=== PATIENT | male | born 1990 | race Caucasian/White ===

== ENCOUNTER 2025-04-26 06:49 | Emergency (ER) | payer BC ==
[2025-04-26] MEDS ORDERED: ONDANSETRON 4 MG/2 ML VIAL ONE ×2 (07:26→08:56)
[2025-04-26] MEDS ORDERED: KETOROLAC 30 MG/ML INJ ONE (07:27)
[2025-04-26] MEDS ORDERED: MORPHINE 4 MG/ML SYR ONE (07:27)
[2025-04-26] MEDS ORDERED: NA CHLORIDE 0.9% 1,000 ML ONE (07:27)
--- NOTE | 2025-04-26 07:51 | RAD REPORT ---
EXAMINATION: CT ABDOMEN AND PELVIS WITHOUT CONTRAST CLINICAL INDICATION: ABD PAIN TECHNIQUE: CT abdomen and pelvis was performed, without IV contrast, as per department protocol. Axia l, sagittal and coronal reconstructions were obtained. One or more of the following dose reduction techniques were used: Automated exposure control, adjustment of the mA and kV according to the patien t size, and iterative reconstruction. Unless otherwise specified, incidental findings do not require dedicated imaging follow-up. COMPARISON: No prior exam. FINDINGS: The lack of intravenous contrast limits the sensitivity of this exam for evaluation of solid visceral organs, vascular structures, and retroperitoneum. LOWER CHEST: The visualized lung bases are clear. LIVER:Normal in size and contour. No focal lesion. Cholecystectomy clips. SPLEEN: Normal size. No focal lesion. PANCREAS: No mass, ductal dilation, or carolee-pancreatic fluid. ADRENALS: Normal; no mass. KIDNEYS AND URETERS: 5 mm stone proximal right ureter resulting in mild right hydronephrosis. No left -sided stone or hydronephrosis. URINARY BLADDER: Normal contour. GASTROINTESTINAL TRACT: No evidence of bowel obstruction, significant free fluid, free air or abscess . Small fat-containing umbilical hernia. APPENDIX: Normal appendix. LYMPH NODES: No lymphadenopathy. MUSCULOSKELETAL: Mild multilevel spinal degenerative changes. IMPRESSION: 5 mm stone proximal right ureter resulting in mild right hydronephrosis.
[2025-04-26 07:52] LABS: Absolute Lymphocytes (CBC) 3.4 K/uL (0.7-4.9); Hematocrit 42.6 % (39.6-49.0); Hemoglobin 14.8 g/dL (13.6-17.9); MCH 30.0 pg (27.0-35.0); MCHC 34.7 g/dL (32.0-36.0); MCV 86.4 fL (80-100); MPV 6.5 fL (7.6-11.3); Nucleated RBC Absolute Count 0.0 (0-0); Nucleated Red Blood Cells % 0.0 % (0-0); RBC Red Blood Cell Count 4.93 M/uL (4.33-5.43); White Blood Count 9.40 thou/uL (4.3-10.9)
[2025-04-26 08:00] LABS: ALT/SGPT 64.0 U/L (16-61); AST/SGOT 25.0 U/L (15-37); Albumin 3.6 g/dL (3.4-5.0); Albumin/Globulin Ratio 0.9 (1.1-1.8); Alkaline Phosphatase 74.0 U/L (45-117); Anion Gap 10.9 mEq/L (5.0-15.0); BUN Blood Urea Nitrogen 15.0 mg/dL (7-18); Globulin 4.0 g/dL (2.3-3.5); Glucose Level 135.0 mg/dL (74-106); Lipase 20.0 U/L (13-75); Potassium 3.9 mEq/L (3.5-5.1)
--- NOTE | 2025-04-26 08:17 | EDPHYS ---
Physician Documentation [facility] – [place], [place] Name: Jovany Foreman Age: 34 yrs Sex: Male : 1990 Arrival Date: 04/26/2025 Time: 06:49 Bed 18 Private MD: ED Physician Carlos Grove HPI: 04/26 08:12 This 34 yrs old Male presents to ER via Wheelchair with complaints of sheryl Possible Kidney Stone. 08:12 The patient presents with pain that is acute, with no known mechanism of injury. The sheryl symptoms are located in the low back, low back area and right mid back. Onset: The symptoms/episode began/occurred just prior to arrival. The pain radiates to the right mid back and right low back. Associated signs and symptoms: Pertinent positives: nausea. The problem was sustained from unknown cause. Modifying factors: The patient symptoms are alleviated by nothing, the patient symptoms are aggravated by nothing. Severity of symptoms: At their worst the symptoms were moderate, in the emergency department the symptoms are unchanged. The patient has experienced similar episodes in the past, multiple times. Historical: - Allergies: 07:06 No Known Allergies; ha1 - PMHx: 07:06 Kidney stone; ha1 - PSHx: 07:06 Cholecystectomy; ha1 - Immunization history:: Adult Immunizations not up to date. - Infectious Disease History:: Denies. - Social history:: Smoking status: Patient/guardian denies using tobacco, the patient reports quitting approximately 3 years ago. ROS: 08:14 Constitutional: Negative for fever, chills, and weight loss, Eyes: Negative for injury, sheryl pain, redness, and discharge, ENT: Negative for injury, pain, and discharge, Neck: Negative for injury, pain, and swelling, Cardiovascular: Negative for chest pain, palpitations, and edema, Respiratory: Negative for shortness of breath, cough, wheezing, and pleuritic chest pain, Abdomen/GI: Negative for abdominal pain, nausea, vomiting, diarrhea, and constipation, Back: Negative for injury and pain, MS/Extremity: Negative for injury and deformity, Skin: Negative for injury, rash, and discoloration, Neuro: Negative for headache, weakness, numbness, tingling, and seizure, Psych: Negative for depression, anxiety, suicide ideation, homicidal ideation, and hallucinations, Allergy/Immunology: Negative for hives, rash, and allergies, Endocrine: Negative for neck swelling, polydipsia, polyuria, polyphagia, and marked weight changes, Hematologic/Lymphatic: Negative for swollen nodes, abnormal bleeding, and unusual bruising, 08:14 : Positive for difficulty urinating, Exam: 08:14 Constitutional: This is a well developed, well nourished patient who is awake, alert, sheryl and in no acute distress. Head/Face: Normocephalic, atraumatic. Eyes: Pupils equal round and reactive to light, extra-ocular motions intact. Lids and lashes normal. Conjunctiva and sclera are non-icteric and not injected. Cornea within normal limits. Periorbital areas with no swelling, redness, or edema. ENT: Nares patent. No nasal discharge, no septal abnormalities noted. Tympanic membranes are normal and external auditory canals are clear. Oropharynx with no redness, swelling, or masses, exudates, or evidence of obstruction, uvula midline. Mucous membranes moist. Neck: Trachea midline, no thyromegaly or masses palpated, and no cervical lymphadenopathy. Supple, full range of motion without nuchal rigidity, or vertebral point tenderness. No Meningismus. Chest/axilla: Normal chest wall appearance and motion. Nontender with no deformity. No lesions are appreciated. Cardiovascular: Regular rate and rhythm with a normal S1 and S2. No gallops, murmurs, or rubs. Normal PMI, no JVD. No pulse deficits. Respiratory: Lungs have equal breath sounds bilaterally, clear to auscultation and percussion. No rales, rhonchi or wheezes noted. No increased work of breathing, no retractions or nasal flaring. Abdomen/GI: Soft, non-tender, with normal bowel sounds. No distension or tympany. No guarding or rebound. No evidence of tenderness throughout. Back: No spinal tenderness. No costovertebral tenderness. Full range of motion. Male : Normal genitalia with no discharge or lesions. Skin: Warm, dry with normal turgor. Normal color with no rashes, no lesions, and no evidence of cellulitis. MS/ Extremity: Pulses equal, no cyanosis. Neurovascular intact. Full, normal range of motion., bilateral aka Neuro: Awake and alert, GCS 15, oriented to person, place, time, and situation. Cranial nerves II-XII grossly intact. Motor strength 5/5 in all extremities. Sensory grossly intact. Cerebellar exam normal. Normal gait. Psych: Awake, alert, with orientation to person, place and time. Behavior, mood, and affect are within normal limits. Vital Signs: 06:53 BP 158 / 90; Pulse 98; Resp 19 S; Temp 98.9(O); Pulse Ox 98% on R/A; Weight 145.15 kg; ha1 Height 6 ft. 5 in. ; Pain 9/10; 06:53 Body Mass Index 37.95 (145.15 kg, 195.58 cm) [facility] 06:53 Pain Scale: Adult ha MDM: 07:06 Medical Screening Exam initiated [facility] 04/26 07:00 Order name: CBC with Diff; Complete Time: 08:11 [facility] 04/26 07:00 Order name: CMP; Complete Time: 08:11 [facility] 04/26 07:00 Order name: Lipase; Complete Time: 08:11 [facility] 04/26 07:07 Order name: CT Stone Protocol; Complete Time: 08:11 [facility] 04/26 07:00 Order name: IV Saline Lock; Complete Time: 07:37 [facility] 04/26 07:00 Order name: Labs collected and sent; Complete Time: 07:37 ha Administered Medications: 07:36 Drug: NS 0.9% IV 1000 ml IV at 1000 ml once; to be given as a bolus over 60 minutes bp Route: IV; Rate: 1000 ml; Site: right antecubital; 07:37 Drug: Ondansetron IVP 2 mg IVP once; over 2 minutes Route: IVP; Site: right antecubital;bp 07:37 Drug: morphine IVP or IV 4 mg IVP once over 4 mins Route: IVP; Infused Over: 4 mins; bp Site: right antecubital; 07:37 Drug: Ketorolac IVP 30 mg IVP once Route: IVP; Site: right antecubital; bp 09:00 Drug: Ondansetron IVP 4 mg IVP once; over 2 minutes Route: IVP; Site: right antecubital;bp 09:00 Drug: Flomax PO 0.4 mg PO once Route: PO; bp 09:00 Drug: Rocephin IV 1 grams IV at per protocol once; Given slow IV push per pharmacy bp instructions Route: IV; Rate: per protocol; Site: right antecubital; Disposition Summary: 04/26/25 08:17 Discharge Ordered Notes: Location: Home sheryl Problem: new sheryl Symptoms: have improved sheryl Condition: Stable sheryl Diagnosis - Hydronephrosis with renal and ureteral calculous obstruction - 5 mm right proximal sheryl Followup: sheryl - With: Private Physician - When: 2 - 3 days - Reason: Recheck today's complaints, Continuance of care, Re-evaluation by your physician Followup: sheryl - With: Alfonso Post MD - When: 2 - 3 days - Reason: Recheck today's complaints, Re-evaluation by your physician Discharge Instructions: - Discharge Summary Sheet sheryl - Kidney Stones sheryl - Kidney Stones, [id number] sheryl - Hydronephrosis sheryl - Dietary Guidelines to Help Prevent Kidney Stones sheryl Forms: - Medication Reconciliation Form sheryl - Antibiotic Education sheryl - Prescription Opioid Use sheryl - Patient Portal Instructions sheryl - Leadership Thank You Letter sheryl - Work release form bp Prescriptions: - Flomax 0.4 mg Oral capsule - take 1 capsule ORAL route daily; 30 capsule; Refills: 0, Product Selection [facility] Permitted - ketorolac 10 mg Oral tablet - take 1 tablet ORAL route every 6 hours prn; 12 tablet; Refills: 0, Product sheryl Selection Permitted - ondansetron 4 mg Oral Tablet,disintegrating - take 1 tablet ORAL route every 6 hours as needed for nausea and vomiting; 20 sheryl tablet; Refills: 0, Product Selection Permitted - Cipro 500 mg Oral Tablet - take 1 tablet ORAL route every 12 hours for 7 days; 14 tablet; Refills: 0, [facility] Product Selection Permitted - Tylenol-Codeine #3 300mg-30mg Oral tablet - take 2 tablets ORAL route every 6 hours As needed; 20 tablet; Refills: 0, [facility] Product Selection Permitted Signatures: Dispatcher [employer] Carlos Gaines MD MD cha Peltier, Brian RN RN Janna Gupta RN RN ha1
--- NOTE | 2025-04-26 08:17 | ER ---
Nurse's Notes [facility] Name: Jovany Foreman Age: 34 yrs Sex: Male : 1990 Arrival Date: 04/26/2025 Time: 06:49 Bed 18 Private MD: Diagnosis: Hydronephrosis with renal and ureteral calculous obstruction-5 mm right proximal Presentation: 04/26 06:53 Chief complaint: Patient states: RIGHT LOWER QUADRANT PAIN THAT RADIATES TO THE BACK. ha1 06:53 Coronavirus screen: Client denies travel out of the [place] in the last 14 days. Ebola ha1 Screen: No symptoms or risks identified at this time. Initial Sepsis Screen: Does the patient meet any 2 criteria? No. Patient's initial sepsis screen is negative. Does the patient have a suspected source of infection? No. Patient's initial sepsis screen is negative. Risk Assessment: Do you want to hurt yourself or someone else? Patient reports no desire to harm self or others. Onset of symptoms was April 26, 2025. 06:53 Method Of Arrival: Wheelchair ha1 06:53 Acuity: JACK 3 ha1 Triage Assessment: 07:06 General: Appears uncomfortable, Behavior is calm, cooperative. Pain: Complains of pain ha1 in right lower quadrant Pain radiates to back Pain currently is 9 out of 10 on a pain scale. Quality of pain is described as throbbing. Neuro: Level of Consciousness is awake, alert, obeys commands, Oriented to person, place, time, situation. Cardiovascular: Patient's skin is warm and dry. Respiratory: Airway is patent Respiratory effort is even, unlabored, Respiratory pattern is regular, symmetrical. GI: Abdomen is round obese, Reports lower abdominal pain. Derm: Skin is pink, warm \T\ dry. Musculoskeletal: Circulation, motion, and sensation intact. Historical: - Allergies: 07:06 No Known Allergies; ha1 - PMHx: 07:06 Kidney stone; ha1 - PSHx: 07:06 Cholecystectomy; ha1 - Immunization history:: Adult Immunizations not up to date. - Infectious Disease History:: Denies. - Social history:: Smoking status: Patient/guardian denies using tobacco, the patient reports quitting approximately 3 years ago. Vital Signs: 06:53 BP 158 / 90; Pulse 98; Resp 19 S; Temp 98.9(O); Pulse Ox 98% on R/A; Weight 145.15 kg; ha1 Height 6 ft. 5 in. ; Pain 9/10; 06:53 Body Mass Index 37.95 (145.15 kg, 195.58 cm) ha1 06:53 Pain Scale: Adult [facility] ED Course: 06:53 Patient arrived in ED. gm2 06:59 Lena Zarco, RN is Primary Nurse. kd3 06:59 Inserted saline lock: 20 gauge in right antecubital area, using aseptic technique. kd3 Blood collected. Flushed with 10 mL NS. 07:06 Triage completed. ha1 07:06 Carlos Grove MD is Attending Physician. sheryl 07:21 CT Stone Protocol In Process Unspecified. EDMS 08:16 Alfonso Post MD is Referral Physician. sheryl Administered Medications: 07:36 Drug: NS 0.9% IV 1000 ml IV at 1000 ml once; to be given as a bolus over 60 minutes bp Route: IV; Rate: 1000 ml; Site: right antecubital; 07:37 Drug: Ondansetron IVP 2 mg IVP once; over 2 minutes Route: IVP; Site: right antecubital;bp 07:37 Drug: morphine IVP or IV 4 mg IVP once over 4 mins Route: IVP; Infused Over: 4 mins; bp Site: right antecubital; 07:37 Drug: Ketorolac IVP 30 mg IVP once Route: IVP; Site: right antecubital; bp 09:00 Drug: Ondansetron IVP 4 mg IVP once; over 2 minutes Route: IVP; Site: right antecubital;bp 09:00 Drug: Flomax PO 0.4 mg PO once Route: PO; bp 09:00 Drug: Rocephin IV 1 grams IV at per protocol once; Given slow IV push per pharmacy bp instructions Route: IV; Rate: per protocol; Site: right antecubital; Outcome: 08:17 Discharge ordered by . sheryl 10:14 Patient left the ED. iw Signatures: Dispatcher [employer] EDMD Carlos Grove MD MD cha Williams, Irene, RN RN Leonard Montague RN RN Lena Zarco RN RN [facility] Janna Abebe RN RN 1 Gavi Stubbs gm2
[2025-04-26] MEDS ORDERED: NA CHLORIDE 0.9% 100 ML ONE (08:56)
[2025-04-26] MEDS ORDERED: TAMSULOSIN 0.4 MG SR CAP ONE (08:56)
[2025-04-26] MEDS ORDERED: CEFTRIAXONE 1000 MG/VIAL ONE (08:56)
[2025-04-26] MEDS ORDERED: FENTANYL CITR 100 MCG/2 ML ONE (09:50)
== END 2025-04-26 10:14 | disposition home or self-care (01) ==
LOC: ER 06:49
DX: N13.2 Hydronephrosis with renal and ureteral calculous obstruction (principal); Z87.442 Personal history of urinary calculi
CPT/HCPCS: 85025; 36415; 83690; 80053; 76377; 74176; 96375; 96374; 99284; J3010; J2405 ×2; J7030; J0696; J1885